=== PATIENT | male | born 2000 | race Caucasian/White ===

== ENCOUNTER 2022-09-23 09:51 | Outpatient (CLI) | payer OTHER, SELFPAY ==
[2022-09-23 14:09] LABS: Albumin* 4.7 g/dL (3.3-5.0); Chloride* 103 mmol/L (96-114)
[2022-09-23 14:10] LABS: Potassium* 4.2 mmol/L (3.6-5.1); Sodium* 141 mmol/L (135-149)
[2022-09-23 14:11] LABS: Creatinine Urine 316.9 mg/dL
[2022-09-23 14:12] LABS: Alanine Aminotransferase* 38 U/L (4-50); Alkaline Phosphatase* 63 U/L (40-150); Aspartate Amino Transferase* 22 U/L (12-35); Bilirubin Total* 0.7 mg/dL (0.1-1.5); Blood Urea Nitrogen* 10 mg/dL (5-24); Carbon Dioxide* 30 mmol/L (20-32); Cholesterol* 154 mg/dL (90-199); Creatinine* 0.7 mg/dL (0.5-1.5); Estimated Glomerular Filt Rate 134 ml/min; Glucose* 87 mg/dL (60-115); Total Protein* 7.1 g/dL (6.0-8.3); Triglycerides* 199 mg/dL (40-149)
[2022-09-23 14:13] LABS: Calcium* 9.6 mg/dL (8.4-10.6); HDL Cholesterol* 24 mg/dL (>=40); LDL Cholesterol Calculated 90 mg/dL (<100)
[2022-09-23 14:30] LABS: Microalbumin Creatinine Ratio 70 mg/g (0-30); Microalbumin Urine 24 mg/dL
[2022-09-23 15:00] LABS: TSH With Reflex to FT4* 0.963 uIU/mL (0.270-4.200)
== END 2022-09-23 09:52 | disposition home or self-care (01) ==
PROVIDERS: PCP Family Medicine; Visit Provider Family Medicine
DX: Z00.00 Encounter for general adult medical examination without abnormal findings (principal); R53.83 Other fatigue; F33.0 Major depressive disorder, recurrent, mild; F41.9 Anxiety disorder, unspecified; F84.5 Asperger's syndrome; I10 Essential (primary) hypertension
CPT/HCPCS: 80053; 80061; 82043; 82570; 84443

== ENCOUNTER 2022-12-05 09:53 | Outpatient (CLI) | payer OTHER, SELFPAY ==
[2022-12-05 14:07] LABS: Creatinine Urine 81.8 mg/dL
[2022-12-05 14:08] LABS: Microalbumin Creatinine Ratio 80 mg/g (0-30); Microalbumin Urine 7 mg/dL
== END 2022-12-05 09:54 | disposition home or self-care (01) ==
LOC: FRMREF 09:53
PROVIDERS: PCP Family Medicine; Visit Provider Family Medicine
DX: R80.9 Proteinuria, unspecified (principal)
CPT/HCPCS: 82043; 82570

== ENCOUNTER 2023-02-18 09:17 | Outpatient (CLI) | payer OTHER, SELFPAY | END 2023-02-18 09:18 | disposition home or self-care (01) | LOC: NFLDREF 02-21 09:43 | PROVIDERS: PCP Family Medicine; Referring Provider Family Medicine; Visit Provider Internal Medicine Nephrology | DX: R80.9 Proteinuria, unspecified (principal) | CPT/HCPCS: 82570; 84156 ==

== ENCOUNTER 2023-06-26 12:39 | Outpatient (CLI) | payer OTHER, SELFPAY | END 2023-06-26 12:40 | disposition home or self-care (01) | PROVIDERS: PCP Family Medicine; Visit Provider Family Medicine | DX: I10 Essential (primary) hypertension (principal); E78.2 Mixed hyperlipidemia; R80.9 Proteinuria, unspecified; F40.9 Phobic anxiety disorder, unspecified; F98.8 Other specified behavioral and emotional disorders with onset usually occurring in childhood and adolescence; K21.00 Gastro-esophageal reflux disease with esophagitis, without bleeding | CPT/HCPCS: 80053; 80061; 82043; 82570 ==

== ENCOUNTER 2024-12-16 09:49 | Outpatient (CLI) | payer BC, SELFPAY | END 2024-12-16 09:50 | disposition home or self-care (01) | LOC: NFLDREF 12-21 05:11 | PROVIDERS: PCP Physician Assistant Medical; Visit Provider Physician Assistant Medical | DX: E78.2 Mixed hyperlipidemia (principal); I10 Essential (primary) hypertension; R80.9 Proteinuria, unspecified; F33.0 Major depressive disorder, recurrent, mild; F41.9 Anxiety disorder, unspecified; K21.00 Gastro-esophageal reflux disease with esophagitis, without bleeding | CPT/HCPCS: 80053; 80061; 84443 ==

== ENCOUNTER 2025-05-16 10:03 | Outpatient (CLI) | payer OTHER, SELFPAY | END 2025-05-16 10:04 | disposition home or self-care (01) | LOC: NFLDREF 05-17 16:11 | PROVIDERS: PCP Physician Assistant Medical; Referring Provider Physician Assistant Medical; Visit Provider Physician Assistant Medical | DX: E78.2 Mixed hyperlipidemia (principal); E78.1 Pure hyperglyceridemia | CPT/HCPCS: 80061; 84450; 84460 ==